=== PATIENT | female | born 1990 | race Caucasian/White ===

== ENCOUNTER 2017-04-18 14:50 | Outpatient (CLI) | payer OTHER | END 2017-04-18 15:51 | disposition home or self-care (01) | LOC: LC 14:50 | PROVIDERS: ATTEND Specialist | PROC: 4A1HXCZ Monitoring of Products of Conception, Cardiac Rate, External Approach (ICD-10-PCS; principal; 2017-04-18) | DX: O24.419 Gestational diabetes mellitus in pregnancy, unspecified control (principal); Z3A.35 35 weeks gestation of pregnancy | CPT/HCPCS: 59025 ==

== ENCOUNTER 2017-05-17 14:37 | Inpatient (IN) | payer OTHER ==
[2017-05-25] MEDS ORDERED: DINOPROSTONE 10 MG VAGINAL INSERT.SR PV PRN (05:48)
[2017-05-25] MEDS ORDERED: RINGERS SOLUTION,LACTATED 300 ML IV ONE (05:48)
[2017-05-25 06:07] LABS: APPEARANCE,URINE SLIGHTLY-CLOUDY; BILIRUBIN,URINE NEGATIVE (NEGATIVE); GLUCOSE, URINE NEGATIVE (NEGATIVE); KETONES,URINE NEGATIVE (NEGATIVE); LEUKOCYTE ESTERASE,URINE NEGATIVE (NEGATIVE); NITRITE,URINE NEGATIVE (NEGATIVE); PROTEIN,URINE NEGATIVE (NEGATIVE); URINE SPECIFIC GRAVITY 1.016; UROBILINOGEN,URINE NEGATIVE mg/dL (<2.0)
[2017-05-25 06:33] LABS: ABSOLUTE EOSINOPHILS # (AUTO) 0.2 10^3/uL (0.0-0.6); ABSOLUTE LYMPHOCYTES (AUTO) 2.8 10^3/uL (0.5-4.7); BASOPHILS % (AUTO) 0.4 % (0-2); EOSINOPHILS % (AUTO) 1.5 % (0-6); HEMATOCRIT 31.3 % (36.0-47.0); HEMOGLOBIN 10.7 g/dL (12.0-15.5); HGB HCT DIFFERENCE 0.8; LYMPHOCYTES % (AUTO) 25.2 % (13-45); MEAN CORPUSCULAR HEMOGLOBIN 29.5 pg (27.0-33.4); MEAN CORPUSCULAR HGB CONC 34.2 g/dL (32.0-36.0); MEAN CORPUSCULAR VOLUME 86 fl (80-97); RED BLOOD COUNT 3.63 10^6/uL (3.72-5.28); RED CELL DISTRIBUTION WIDTH 14.5 % (11.5-14.0); SEGMENTED NEUTROPHILS % (AUTO) 63.9 % (42-78)
[2017-05-25 06:40] LABS: URINE BARBITURATES SCREEN NEGATIVE; URINE METHADONE SCREEN NEGATIVE; URINE OPIATES LOW NEGATIVE; URINE PHENCYCLIDINE SCREEN NEGATIVE
[2017-05-25 06:40] LABS: ALANINE AMINOTRANSFERASE 23 U/L (9-52); ALKALINE PHOSPHATASE 148 U/L (38-126); ANION GAP 7 (5-19); ASPARTATE AMINO TRANSFERASE 15 U/L (14-36); BILIRUBIN,DIRECT 0.3 mg/dL (0.0-0.4); BILIRUBIN,TOTAL 0.3 mg/dL (0.2-1.3); BLOOD UREA NITROGEN 11 mg/dL (7-20); CALCIUM 9.2 mg/dL (8.4-10.2); CARBON DIOXIDE 21 mmol/L (22-30); CHLORIDE 110 mmol/L (98-107); CREATININE RESULT 0.76 mg/dL (0.52-1.25); GLUCOSE 88 mg/dL (75-110); POTASSIUM 4.4 mmol/L (3.6-5.0); SODIUM 137.7 mmol/L (137-145); TOTAL PROTEIN 5.9 g/dL (6.3-8.2)
[2017-05-25] MEDS ORDERED: DINOPROSTONE 10 MG VAGINAL INSERT.SR ONE (07:21)
[2017-05-25] MEDS: RINGERS SOLUTION,LACTATED 1,000 ML IV PRN ×3 (07:37→21:30)
[2017-05-25] MEDS ORDERED: OXYTOCIN/NORMAL SALINE 20 UNIT/1,000 ML RTUINJ IV PRN (20:55)
[2017-05-25] MEDS ORDERED: MISOPROSTOL 0.2 MG TABLET ONE (21:01)
[2017-05-25] MEDS ORDERED: OXYTOCIN/NORMAL SALINE 20 UNIT/1,000 ML RTUINJ ONE (21:01)
[2017-05-25] MEDS ORDERED: LIDOCAINE 1% INJ-PF (10 MG/ML) 30 ML SDV ONE (21:01)
[2017-05-26] MEDS ORDERED: FENTANYL CITRATE INJ/PF 100 MCG/2 ML AMPUL ONE ×2 (00:07→10:50)
[2017-05-26] MEDS ORDERED: BUPIVACAINE HCL 0.25 % INJ/PF (2.5 MG/1 ML) 30 ML VIAL ONE (00:08)
[2017-05-26] MEDS ORDERED: PHENYLEPHRINE HCL INJ/PF 10 MG/1 ML SDV ONE (00:08)
[2017-05-26] MEDS ORDERED: FENTANYL/BUPIVACAINE/NS/PF 200 MCG/100 ML RTUINJ EPI ONE (00:08)
[2017-05-26] MEDS ORDERED: EPHEDRINE SULFATE INJ 50 MG/1 ML AMPULE ONE ×2 (00:08→10:49)
[2017-05-26] MEDS ORDERED: LIDOCAINE 2% INJ-PF (20 MG/ML) 10 ML AMPUL ONE ×2 (05:42→10:39)
[2017-05-26] MEDS ORDERED: SODIUM BICARBONATE 8.4% INJ 50 MEQ/50 ML DISP.SYRIN ONE (05:43)
[2017-05-26] MEDS ORDERED: ACETAMINOPHEN 325 MG TABLET PO ONE (09:36)
[2017-05-26] MEDS ORDERED: ACETAMINOPHEN 325 MG TABLET ONE (09:40)
[2017-05-26] MEDS ORDERED: MISOPROSTOL 0.2 MG TABLET PR PRN (09:48)
[2017-05-26] MEDS ORDERED: LIDOCAINE 1% INJ-PF (10 MG/ML) 30 ML SDV INJ PRN (09:48)
[2017-05-26] MEDS ORDERED: AMPICILLIN SOD/SULBACTAM 3 GM VIAL IV ONE (09:54)
[2017-05-26] MEDS ORDERED: AMPICILLIN SOD/SULBACTAM 3 GM VIAL ONE (10:02)
[2017-05-26] MEDS ORDERED: CEFAZOLIN 2 GM/D5W RTU 2 GM/50 ML RTUPB IV ONE (10:30)
[2017-05-26] MEDS ORDERED: CITRIC ACID/SODIUM CITRATE ORAL SOLN 15 ML UDCUP ONE (10:30)
[2017-05-26] MEDS ORDERED: CITRIC ACID/SODIUM CITRATE ORAL SOLN 15 ML UDCUP PO ONE (10:38)
[2017-05-26] MEDS ORDERED: SIMETHICONE 80 MG TAB.CHEW PO PRN (10:39)
[2017-05-26] MEDS ORDERED: HYDROMORPHONE HCL INJ/PF 2 MG/ML AMPULE IV PRN (10:39)
[2017-05-26] MEDS ORDERED: PROMETHAZINE HCL INJ 25 MG/1 ML VIAL IV PRN ×3 (10:39→11:35)
[2017-05-26] MEDS ORDERED: ACETAMINOPHEN 100 ML IV ONE ×2 (10:39→12:16)
[2017-05-26] MEDS ORDERED: RINGERS SOLUTION,LACTATED 1,000 ML IV PRN (10:39)
[2017-05-26] MEDS ORDERED: ACETAMINOPHEN 325 MG TABLET PO PRN (10:39)
[2017-05-26] MEDS ORDERED: OXYTOCIN/NORMAL SALINE 20 UNIT/1,000 ML RTUINJ IV PRN (10:39)
[2017-05-26] MEDS ORDERED: DIPH/PERTUSS(ACELL)/TETANUS VAC/PF 0.5 ML SYR (>=10YO) IM PRN (10:39)
[2017-05-26] MEDS ORDERED: MEASLES,MUMPS&RUBELLA VACC/PF 0.5 ML VIAL SUBCUT PRN (10:39)
[2017-05-26] MEDS ORDERED: OXYTOCIN/NORMAL SALINE 20 UNIT/1,000 ML RTUINJ ONE (10:49)
[2017-05-26] MEDS ORDERED: OXYTOCIN 10 UNIT/ML VIAL ONE (10:49)
[2017-05-26] MEDS ORDERED: MIDAZOLAM 2 MG/2 ML INJ ONE (10:50)
[2017-05-26] MEDS ORDERED: KETAMINE HCL INJ 500 MG/10 ML VIAL ONE (10:50)
[2017-05-26] MEDS ORDERED: FENTANYL CITRATE INJ/PF 100 MCG/2 ML AMPUL IV PRN ×3 (11:35)
[2017-05-26] MEDS ORDERED: DIPHENHYDRAMINE HCL 50 MG/ML VIAL IV PRN (11:35)
[2017-05-26] MEDS ORDERED: MEPERIDINE HCL/PF INJ 25 MG/1 ML DISP.SYRIN IV PRN (11:35)
[2017-05-26] MEDS ORDERED: MORPHINE SULFATE 10 MG/ML INJ IV PRN (11:35)
[2017-05-26] MEDS ORDERED: ONDANSETRON HCL INJ/PF 4 MG/2 ML SDV IV PRN (11:35)
[2017-05-26] MEDS ORDERED: CEFAZOLIN 1 GM/D5W RTU 1 GM/50 ML RTUPB IV SCH (12:00)
[2017-05-26] MEDS ORDERED: IBUPROFEN 800 MG TABLET PO SCH (12:00)
--- NOTE | 2017-05-26 12:12 | Operative Report ---
Operative Report DATE OF SURGERY: 05/26/17 PREOPERATIVE DIAGNOSIS: Arrest of descent, CPD POSTOPERATIVE DIAGNOSIS: Same OPERATION: Primary via low transverse uterine incision SURGEON: ZACKARY CURRIE ANESTHESIA: Epidural TISSUE REMOVED OR ALTERED: Placenta COMPLICATIONS: None ESTIMATED BLOOD LOSS: 500 cc PROCEDURE: The patient was admitted for induction of labor. She progressed to complete and pushing but was unable to push the baby past a +2 station. There is large At molding noted. Estimated weight was 8 pounds. We discussed vacuum delivery versus . The patient family did not wish to attempt vacuum we proceeded with a delivery. Patient was taken to the OR and placed in supine position. Her epidural been dosed to surgical level. Her abdomen was prepared and draped in sterile fashion her bladder was drained with Neely catheter. A low transverse incision was made and carried down the level of the fascia which was nicked in the midline. The fascial incision was extended bilaterally using curved Ken scissors. The fascia was off the rectus muscles using sharp and blunt dissection. The rectus muscles were in the midline. Peritoneum was entered without incident. Incision extended superiorly and inferiorly taking care not to injure bladder. Bladder blade placed low uterine segment was identified. A serosal incision was made creating a bladder flap. A low transverse uterine incision was made within C safe knife and the incision was extended with fingertips. A vaginal hand assisted in pushing the baby about the pelvis and the baby was delivered with a nuchal cord through the incision. Cord doubly clamped and cut and the was passed off to the employment case manager in attendance. Baby weighed 7 lbs. 7 oz. Apgars were 9 and 9. Cord blood is obtained. The placenta was manually extracted with trailing membranes. The uterus was externalized and and wrapped in a moist lap sponge. Uterine contents were wiped clean. Tubes and ovaries are normal. The uterus was closed with a running locking layer of 0 chromic using a second layer to imbricate the first completing a double layer closure the uterus. The serosa was closed with 2+ plain gut stitch. There were no extensions of the uterine incision. Posterior cul-de-sac was irrigated and suctioned free of fluid. The uterus was replaced in the abdomen found to be hemostatic. The abdominal wall peritoneum was closed with a running 2-0 chromic stitch. The rectus muscles were brought together in the midline with an interrupted 2-0 chromic stitch. Subfascial tissues were inspected for bleeding and after assuring hemostasis the fascia was closed with a running 0 Vicryl in 2 segments. The wound was irrigated and suctioned free of fluid. Lopez's layer was closed with a 2 oh plain gut stitch and skin closed with a running subcuticular 4-0 undyed Vicryl stitch.
[2017-05-26] MEDS ORDERED: HYDROMORPHONE HCL INJ/PF 2 MG/ML AMPULE ONE (13:08)
[2017-05-26] MEDS ORDERED: METOCLOPRAMIDE HCL INJ/PF 10 MG/2 ML SDV ONE (13:34)
[2017-05-26] MEDS ORDERED: KETOROLAC TROMETHAMINE 60 MG/2 ML SDV ONE (13:34)
[2017-05-26] MEDS ORDERED: ONDANSETRON HCL INJ/PF 4 MG/2 ML SDV ONE (13:34)
[2017-05-26] MEDS: KETOROLAC TROMETHAMINE INJ/PF 30 MG/1 ML SDV IV SCH ×2 (13:49→22:19)
--- NOTE | 2017-05-26 14:26 | Delivery Summary ---
Del Sum A-C Datetime Report Generated by CPN: 05/26/2017 14:25 DELIVERY PERSONNEL DELIVERY PERSONNEL: [id number] Delivery Doctor:: Graciela Arthur MD Anesthesiologist:: Tiffany Child MD CIRCULATION ANALYST:: Fina Farmer CRNA Labor and Delivery Nurse:: Nilsa Serrano RNdeputy coroner investigator Nurse:: Dacia Underwood RN Pocket Creaser:: Nilsa Serrano RN Neonatal Nurse Practitioner:: BI Torres Nursery Nurse:: ESTEFANI Carter Fabric Worker Foreman/REGULATORY CONSULTANT: Roberto Deleon CST Fabric Worker Foreman/REGULATORY CONSULTANT: Paris Kong CST Additional Personnel: : Dominik Nowata MS III MATERNAL INFORMATION Delivery Anesthesia: Epidural Medications After Delivery: Pitocin Drip 20 Units/1000ml NSS Estimated Blood Loss (ml): 600 Maternal Complications: None LABOR SUMMARY EDC: 05/18/2017 00:00 No. Babies in Womb: 1 Attempted: No Labor Anesthesia: Epidural LABOR INFORMATION Reason for Induction: Post Dates Reason for Induction- Other: GDM diet controlled Onset of Labor: 05/26/2017 01:36 Complete Dilatation: 05/26/2017 07:35 Cervical Ripening Agents: Cervidil Oxytocin: Induction Group B Beta Strep: negative Steroids Given: None Reason Steroids Not Administered: Not Applicable MEMBRANES Membranes Rupture Method: Artificial Rupture of Membranes: 05/26/2017 03:47 Length of Rupture (hr): 7.50 Amniotic Fluid Color: Clear Amniotic Fluid Amount: Small Amniotic Fluid Odor: Normal STAGES OF LABOR Stage 1 hr: 5 Stage 1 min: 59 Stage 2 hr: 3 Stage 2 min: 42 Stage 3 hr: 0 Stage 3 min: 0 Total Time in Labor hr: 9 Total Time in Labor min: 41 VAGINAL DELIVERY Episiotomy: None Laceration Extension: N/A Laceration Type: None Laceration Repair: Not Applicable Sponge Count Correct: N/A Sharps Count Correct: N/A CSECTION DELIVERY Primary Indication: Arrest of Descent Secondary Indication: N/A CSection Urgency: Non-Scheduled CSection Incidence: Primary Labor: Labor Elective: N/A CSection Incision: Lower Uterine Transverse BABY A INFORMATION Delivery Date/Time: 05/26/2017 11:17 Method of Delivery: Born in Route : No : N/A Forceps: N/A Vacuum Extraction: N/A Shoulder Dystocia : No PRESENTATION/POSITION BABY A Presentation: Cephalic Breech Presentation: N/A PLACENTA INFORMATION BABY A Placenta Delivery Time : 05/26/2017 11:17 Placenta Method of Delivery: Spontaneous Placenta Status: Delivered SCORES BABY A Heart Rate 1 min: >100 bpm Resp Effort 1 min: Good Cry Reflex Irritability 1 min: Cough or Sneeze or Pulls Away Muscle Tone 1 min: Active Motion Color 1 min: Body [place], Extremities Blue Resuscitation Effort 1 min: Tactile Stimulation SCORE 1 MIN: 9 Heart Rate 5 min: >100 bpm Resp Effort 5 min: Good Cry Reflex Irritability 5 min: Cough or Sneeze or Pulls Away Muscle Tone 5 min: Active Motion Color 5 min: Body [place], Extremities Blue SCORE 5 MIN: 9 INFORMATION BABY A Gestational Age at Delivery: 41.1 Gestational Status: Late Term- 41- 41.6 Weeks Outcome : Liveborn Infant Condition : Stable Infant Sex: Male WEIGHT/LENGTH BABY A Infant Birthweight (gm): 3385 Infant Weight (lb): 7 Weight (oz): 7 Length (in): 21.00 Length (cm): 53.34 CORD INFORMATION BABY A No. Cord Vessels: 3 Nuchal Cord : Around Neck x1, Loose Cord Blood Taken: Yes-For Eval (Mom's Blood Type - or O+) Infant Suction: None ASSESSMENT BABY A Infant Complications: Multiple Late Decels; Multiple Variable Decels; Meconium Physical Findings at Delivery: Caput Succedaneum Infant Respirations: Appears Normal Skin to Skin: No Peoplesoft Functional Analyst/ALS Called : No Care By: Gary Haddad RN Transferred To: [facility] BABY B INFORMATION : N/A SIGNATURES : I personally evaluated and examined the patient in conjunction with the MLP and agree with the assessment, treatment plan and disposition.
--- NOTE | 2017-05-26 14:33 | Admission Physical ---
Datetime Report Generated by CPN: 05/26/2017 14:33 CURRENT ADMISSION Chief Complaint: Scheduled Induction of Labor Indication for Induction: Post Dates; Maternal Diabetes Admit Plan: Admit to Unit; Initiate Labor Induction Protocol ALLERGIES Medication Allergies: No Medication Allergies: No Known Allergies (05/25/2017) Medication Allergies: No Known Allergies (04/18/2017) Latex: No Latex Allergies OBSTETRICAL HISTORY EDC: 05/18/2017 00:00 : 1 Para: 0 Term: 0 : 0 SAB: 0 IAB: 0 Ectopic: 0 Livin Cesareans: 0 VBACs: 0 Multiple Births: 0 Gestational Diabetes: Yes Rh Sensitization: No Incompetent Cervix: No CHENTE: No Infertility: No ART Treatment: No Uterine Anomaly: No IUGR: No Hx Previous C/S: No Macrosomia: No Hx Loss/Stillborn: No PIH: No Hx : No Placenta Previa/Abruption: No Depression/PP Depression: No PTL/PROM: No Post Hemorrhage: No Current Procedures: Ultrasound; NST Obstetrical History Comments: G1 - current GDM SEE RECORDS Alcohol: No Marijuana : No Cocaine: No Other Illicit Drugs: No Cigarettes: Never Smoker. [id number] MEDICAL HISTORY Diabetes: No Blood Transfusion: No Pulmonary Disease (Asthma, TB): No Breast Disease: No Hypertension: No Dust Collector Attendant Surgery: No Heart Disease: No Hosp/Surgery: No Autoimmune Disorder: No Anesthetic Complications: No Kidney Disease: No Abnormal Pap Smear: No Neuro/Epilepsy: No Psychiatric Disorders: No Other Medical Diseases: No Hepatitis/Liver Disease: No Significant Family History: No Varicosities/Phlebitis: No Trauma/Violence : No Thyroid Dysfunction: No INFECTIOUS HISTORY Gonorrhea: No Genital Herpes: Yes Chlamydia: No Tuberculosis: No Syphilis: No Hepatitis: No HIV/AIDS Exposure: No Rash or Viral Illness: No HPV: No Infectious History Comments: History of HSV2, Valtrex at 36 weeks. PHYSICAL EXAM General: Normal HEENT: Normal Neurologic: Normal Thyroid: Normal Heart: Normal Lungs: Normal Breast: Deferred Back: Deferred Abdomen: Normal Genitourinary Exam: Deferred Extremities: Normal DTRs: Normal Pelvic Type: Not Done Vital Signs: Reviewed; Within Normal Limits VAGINAL EXAM Dilatation: 10 Effacement: 100 Station: 1 MEMBRANES Membranes: Ruptured Membranes: Intact Amniotic Fluid Color: Meconium, Light FETUS A EGA: 41.0 Monitoring: External US FHR- Baseline: 140 Variability: Moderate 6-25bpm Accelerations: 15X15 Decelerations: None FHR Category: Category I Presentation: Vertex Admit Comment: GBS negative GDM diet controlled; Accu-Chek upon arrival was 88 at 06:19 this morning Admitted for labor induction with cervical ripening-sve on admission by sd pt administered cervidil 10MG at 0739 this morning [place] MS-III, CUSOM PLANS FOR LABOR AND DELIVERY Labor and Delivery: None Pain Management: Natural Other Pain Management Plans: unsure Feeding Preference: Formula Benefit of Breast Feed Discussed: Yes Circumcision: Yes INFORMED CONSENT Assignment: Graciela Arthur MD Signature: with User ID: [email or web address] : with User ID: [email or web address] : I personally evaluated and examined the patient in conjunction with the MLP and agree with the assessment, treatment plan and disposition. : I personally evaluated and examined the patient in conjunction with the MLP and agree with the assessment, treatment plan and disposition.
[2017-05-26] MEDS: DOCUSATE SODIUM 100 MG CAPSULE PO SCH (17:20)
[2017-05-26 17:55] LABS: HEMATOCRIT 24.1 % (36.0-47.0); HGB HCT DIFFERENCE -0.1; MEAN CORPUSCULAR HEMOGLOBIN 28.9 pg (27.0-33.4); MEAN CORPUSCULAR HGB CONC 33.2 g/dL (32.0-36.0); MEAN CORPUSCULAR VOLUME 87 fl (80-97); RED BLOOD COUNT 2.77 10^6/uL (3.72-5.28); RED CELL DISTRIBUTION WIDTH 14.7 % (11.5-14.0); WHITE BLOOD COUNT 21.7 10^3/uL (4.0-10.5)
[2017-05-27] MEDS: OXYCODONE-ACETAMINOPHEN 5-325 MG TABLET PO PRN ×5 (00:02→21:53)
[2017-05-27] MEDS: KETOROLAC TROMETHAMINE INJ/PF 30 MG/1 ML SDV IV SCH (05:58)
[2017-05-27 06:02] LABS: HEMATOCRIT 21.7 % (36.0-47.0); HGB HCT DIFFERENCE -0.1; MEAN CORPUSCULAR HEMOGLOBIN 29.2 pg (27.0-33.4); MEAN CORPUSCULAR HGB CONC 33.2 g/dL (32.0-36.0); MEAN CORPUSCULAR VOLUME 88 fl (80-97); RED BLOOD COUNT 2.46 10^6/uL (3.72-5.28); RED CELL DISTRIBUTION WIDTH 14.9 % (11.5-14.0); WHITE BLOOD COUNT 18.4 10^3/uL (4.0-10.5)
[2017-05-27 06:04] LABS: HEMOGLOBIN 7.2 g/dL (12.0-15.5)
--- NOTE | 2017-05-27 10:18 | PDOC PROGRESS REPORT ---
Subjective Progress Note for:: 05/27/17 Subjective:: s/p primary c/section yesterday. doing well. Physical Exam - Physical Exam Vital Signs: Temp Pulse Resp BP Pulse Ox 98.8 F 88 16 114/69 93 05/27/17 09:04 05/27/17 09:04 05/27/17 09:04 05/27/17 09:04 05/27/17 09:04 Intake & Output 05/26/17 05/27/17 05/28/17 06:59 06:59 06:59 Intake Total 2300 0 Output Total 2500 Balance -200 0 GI/Abdominal exam: PRESENT: soft - incision c/d/intact, other - Obstetrical Exam External Genitalia: other Vagina: other - labia swollen from attempted vaginal delivery with prolonged pushing. Fundal Height: u/u - u/2 Tender: No Result Laboratory Results: 05/27/17 05:07 05/25/17 06:19 05/25/17 05/26/17 05/27/17 06:19 17:30 05:07 WBC 21.7 H 18.4 H RBC 2.77 L 2.46 L Hgb 8.0 L D 7.2 L Hct 24.1 L 21.7 L MCV 87 88 MCH 28.9 29.2 MCHC 33.2 33.2 RDW 14.7 H 14.9 H Plt Count 176 166 Blood Type O POSITIVE Antibody Screen NEGATIVE Assessment & Plan - Plan Summary Plan Summary: will d/c ott this afternoon after labia swelling has decreased. plan for d/c in AM if remains stable.
[2017-05-27] MEDS: PRENATAL VITAMIN W-O CA NO5/FE FUMARATE/FA CAPSULE PO SCH (10:57)
[2017-05-27] MEDS: DOCUSATE SODIUM 100 MG CAPSULE PO SCH ×2 (10:57→17:15)
[2017-05-27] MEDS: IBUPROFEN 800 MG TABLET PO SCH ×2 (11:35→17:15)
[2017-05-28] MEDS: IBUPROFEN 800 MG TABLET PO SCH ×3 (00:23→12:10)
[2017-05-28 06:10] LABS: HEMATOCRIT 27.8 % (36.0-47.0); HGB HCT DIFFERENCE -0.8; MEAN CORPUSCULAR HEMOGLOBIN 28.9 pg (27.0-33.4); MEAN CORPUSCULAR HGB CONC 32.4 g/dL (32.0-36.0); MEAN CORPUSCULAR VOLUME 89 fl (80-97); RED BLOOD COUNT 3.12 10^6/uL (3.72-5.28); RED CELL DISTRIBUTION WIDTH 14.8 % (11.5-14.0); WHITE BLOOD COUNT 14.1 10^3/uL (4.0-10.5)
[2017-05-28] MEDS: OXYCODONE-ACETAMINOPHEN 5-325 MG TABLET PO PRN ×2 (08:34→12:09)
[2017-05-28] MEDS: PRENATAL VITAMIN W-O CA NO5/FE FUMARATE/FA CAPSULE PO SCH (09:26)
[2017-05-28] MEDS: DOCUSATE SODIUM 100 MG CAPSULE PO SCH (09:26)
--- NOTE | 2017-05-28 10:57 | PDOC DISCHARGE SUMMARY ---
Final Diagnosis Discharge Date: 05/28/17 - Final Diagnosis (1) Status post primary low transverse section Is this a current diagnosis for this admission?: Yes (2) Failed induction of labor Is this a current diagnosis for this admission?: Yes (3) Gestational diabetes mellitus (GDM) affecting Is this a current diagnosis for this admission?: Yes (4) Anemia affecting Is this a current diagnosis for this admission?: Yes (5) hemorrhage Is this a current diagnosis for this admission?: Yes (6) Blood transfusion during current hospitalization Is this a current diagnosis for this admission?: Yes Discharge Data - Discharge Medication Home Medications: Omeprazole Magnesium [Prilosec Otc] 1 tab PO DAILY 04/18/17 Valacyclovir HCl [Valtrex 500 mg Tablet] 500 mg PO DAILY 05/25/17 Docusate Sodium [Colace 100 mg Capsule] 100 mg PO BID #60 capsule 05/28/17 Ferrous Sulfate [Feosol] 325 mg PO BID #60 tablet 05/28/17 Ibuprofen [Motrin 800 mg Tablet] 800 mg PO Q8HP PRN #60 tablet 05/28/17 Oxycodone HCl/Acetaminophen [Percocet 5-325 mg Tablet] 1 tab PO Q4HP PRN #30 tablet 05/28/17 Reason(s) for Admission: Induction of Labor, Gestional Diabetes Procedures: NST, Ultrasound Intrapartum Procedure(s): : Low Cervical, Transverse - Diagnosis Test Laboratory: Temp Pulse Resp BP Pulse Ox 97.6 F 76 15 111/62 100 05/28/17 08:14 05/28/17 08:14 05/28/17 08:14 05/28/17 08:14 05/28/17 09:15 05/25/17 05/25/17 05/26/17 05:56 06:19 17:30 RBC 3.63 L 2.77 L Hgb 10.7 L 8.0 L D Hct 31.3 L 24.1 L Urine Opiates Screen NEGATIVE 05/27/17 05/28/17 05:07 05:55 RBC 2.46 L 3.12 L Hgb 7.2 L 9.0 L Hct 21.7 L 27.8 L Urine Opiates Screen - Discharge information/Instructions Discharge Activity: Activity As Tolerated, Balance Activity w/Rest, No Lifting Over 10 Pounds, No Lifting/Push/Pulling, Pelvic Rest, Slowly Increase Activity, No tub bath Discharge Diet: As Tolerated, Regular Disposition: HOME, SELF-CARE Follow up with: [facility] in: 1, Weeks - incision check
[2017-05-28 11:19] VITALS: BP 117/70
== END 2017-05-28 14:18 | disposition home or self-care (01) | DRG 765 ==
LOC: LR 05-25 05:33 → 2S 05-26 14:31
PROVIDERS: ADMIT Obstetrics & Gynecology; ATTEND Obstetrics & Gynecology
PROC: 10D00Z1 Extraction of Products of Conception, Low, Open Approach (ICD-10-PCS; principal; 2017-05-26)
PROC: 4A1HXCZ Monitoring of Products of Conception, Cardiac Rate, External Approach (ICD-10-PCS; 2017-05-26)
PROC: 30233N1 Transfusion of Nonautologous Red Blood Cells into Peripheral Vein, Percutaneous Approach (ICD-10-PCS; 2017-05-27)
DX: O65.9 Obstructed labor due to maternal pelvic abnormality, unspecified (principal); O98.32 Other infections with a predominantly sexual mode of transmission complicating childbirth; O72.1 Other immediate postpartum hemorrhage; O69.81X0 Labor and delivery complicated by cord around neck, without compression, not applicable or unspecified; O76 Abnormality in fetal heart rate and rhythm complicating labor and delivery; O77.0 Labor and delivery complicated by meconium in amniotic fluid; O62.1 Secondary uterine inertia; O24.420 Gestational diabetes mellitus in childbirth, diet controlled; O48.0 Post-term pregnancy; O99.02 Anemia complicating childbirth; D64.9 Anemia, unspecified; A60.00 Herpesviral infection of urogenital system, unspecified; Z37.0 Single live birth; Z3A.41 41 weeks gestation of pregnancy; Z79.899 Other long term (current) drug therapy
CPT/HCPCS: 1961; 36415; 36430; 80053; 80307; 81005; 85025; 85027; 86592; 86850; 86900; 86901; 86920; 94760; 94799; J0131; J0295; J0690; J1170; J1885; J2250; J2370; J2405; J2590; J2765; J3010; J3490; P9016